=== PATIENT | female | born 1975 ===

== ENCOUNTER 2021-11-10 17:04 | Emergency (ER) | payer SELFPAY ==
[2021-11-10 17:38] VITALS: BP 153/108
--- NOTE | 2021-11-11 09:06 | Electrocardiograph Report ---
[facility] Test Date: 2021-11-10 Test Time: 17:53:57 Pat Name: BENOIT BILLS Department: Room: Gender: F [employer]ire Technician: PATRICK : [id number] Requested By: JOSEPH FIGUEROA Order Number: [id number] Reading MD: Adama Brito Measurements Intervals [place] Rate: 116 P: 61 TX: 168 QRS: 42 QRSD: 82 T: 28 QT: 334 QTc: 463 Interpretive Statements Sinus tachycardia Probable left atrial enlargement No previous ECG available for comparison Electronically Signed On 11-11-2021 9:06:30 EDT by Adama Brito
== END 2021-11-11 05:10 | disposition left against medical advice (07) ==
LOC: ED 17:04
DX: N76.0 Acute vaginitis (principal); Z53.21 Procedure and treatment not carried out due to patient leaving prior to being seen by health care provider
CPT/HCPCS: 93005